=== PATIENT | female | born 1995 | race Caucasian/White ===

== ENCOUNTER 2016-12-12 10:28 | Emergency (ER) | payer BC, MEDICAID ==
[~2016-12-12] VITALS: Ht 152.4 cm; Wt 64.0 kg
[2016-12-12 10:31] VITALS: Ht 152.4 cm; Wt 64.0 kg
[2016-12-12] MEDS ORDERED: PRED20TA PO (11:00)
[2016-12-12] MEDS ORDERED: AMO500 PO (11:00)
[2016-12-12] MEDS ORDERED: TYL325R PR (11:00)
[2016-12-12] MEDS ORDERED: ACET325T33 PO (11:08)
--- NOTE | 2016-12-12 11:15 | ERA ---
ER Documentation Chief Complaint Date/Time DATE: 12/12/16 TIME: 11:09 Chief Complaint Complains of a sorethroat and earache HPI This is an otherwise healthy 21-year-old female presenting with a chief complaint of pharyngitis. Patient states that the symptoms started at 2 days ago and is worse when she swallows. Patient states that she has felt feverish but has not taken her temperature. Patient has not taken any medications to relieve the symptoms. The patient denies difficulty breathing, dysphagia, trauma to the throat, change in voice, drooling, fatigue, oral swelling, ear pain or meningismus. Patient was evaluated in the ED 1 week ago for the same symptoms along with a dry cough that has since subsided 3 days ago. Describes no other symptoms or associated manifestations. Denies personal or family medical history. Patients vaccination status is up to date. ROS All systems reviewed and are negative except as per history of present illness. Medications Home Meds Active Scripts Acetaminophen* (Tylenol*) 325 Mg Tablet, 1 TAB PO Q8 Y for PAIN AND OR ELEVATED TEMP, #20 TAB Prov:CINTHYA SANCHEZ PA-C 12/12/16 Amoxicillin* (Amoxicillin*) 500 Mg Cap, 500 MG PO BID for 10 Days, CAP Prov:CINTHYA SANCHEZ PA-C 12/12/16 Prednisone* (Prednisone*) 20 Mg Tab, 40 MG PO DAILY for 4 Days, TAB Prov:CINTHYA SANCHEZ PA-C 12/12/16 Discontinued Scripts Acetaminophen (Acephen) 325 Mg Supp.rect, 1 SUPP IN Q4 Y for PAIN AND OR ELEVATED TEMP, #8 SUPP Prov:CINTHYA SANCHEZ PA-C 12/12/16 Allergies Allergies: Coded Allergies: No Known Allergy (Unverified , 12/12/16) PMhx/Soc Medical and Surgical Hx: pt denies Medical Hx, pt denies Surgical Hx History of Surgery: No Anesthesia Reaction: No Hx Neurological Disorder: No Hx Respiratory Disorders: No Hx Cardiac Disorders: No Hx Psychiatric Problems: No Hx Miscellaneous Medical Probl: No Hx Alcohol Use: No Hx Substance Use: No Hx Tobacco Use: No Physical Exam Vitals Vital Signs Date Time Temp Pulse Resp B/P Pulse Ox O2 Delivery O2 Flow Rate FiO2 12/12/16 10:31 98.3 75 20 122/75 97 Physical Exam Const: Healthy-appearing, well-nourished, well-developed, no acute distress. Head: Normocephalic, Atraumatic Eyes: Non-injected; No scleral erythema, discharge or foreign body. EOMI bilaterally. PERRLA. Ears: Normal External Ears, EACs clear, TM normal bilaterally without erythema. Nose: Normal nose without discharge, septal deviation, or sinus tenderness. Throat: Erythematous oropharynx with enlarged tonsils bilaterally with exudates visualized. Patient has a small, about 0.2 mm black piece of debris on the right tonsil. Moist mucous membranes. Neck: [Anterior cervical lymphadenopathy bilaterally]. Full range of motion. Supple. Trachea midline. No posterior cervical lymphadenopathy. ~ No meningismus. Pulm: No dyspnea, stridor, tripoding or drooling. Good air movement. Clear to auscultation bilaterally. Cardio: Regular rate and rhythm; No murmurs, gallops or rubs auscultated. No JVD grossly observed. Capillary refill less than 2 seconds. Abd: Soft, non tender, non distended. No guarding, masses. Normal bowel sounds. No CVA tenderness. MS: Normal motor strength, normal tone. Skin: No petechiae or rashes. No ulcer, induration, jaundice. Good turgor. Back: No midline or flank tenderness Ext: No cyanosis, edema or palpable cord. Normal movement of all extremities grossly observed. Radial and posterior tibial pulses 2+ bilaterally. Neur: Awake and alert Psych: Active and alert. Normal Mood and Affect. Oriented x3. Procedures/MDM Patient was evaluated and worked up for pharyngitis as described in the history and physical examination. The patient has a [employer] Criteria of 3 out of 5. The current most likely diagnosis is viral versus bacterial tonsillitis. The treatment plan will thus include out-patient antibiotics and supportive measures. At this time I do not suspect diphtheria, Laverne-Lutz virus, peritonsillar abscess, epiglottitis, retropharyngeal abscess, parapharyngeal abscess, or allergic reaction. I no longer have suspicion for endangerment of the airway. I have spoke with the patient regarding their condition and future management. They have verbally responded that they understand their status and treatment plan. The patients vitals are stable, and their current condition is appropriate for discharge. The patient will be given discharge instructions with return precautions. Departure Diagnosis: Primary Impression: Acute bacterial tonsillitis Condition: Stable Patient Instructions: When Your Child Has Pharyngitis or Tonsillitis Additional Instructions: Follow up with your PCP within the next 1-3 days for a more thorough evaluation and a possible referral to a specialist. Return the the emergency department immediately if symptoms worsen or change. If you have any questions regarding medications, ask your pharmacist or us before you leave. If any adverse reactions occur while taking your medications, discontinue the treatment and return to the emergency department immediately. Take your medications as directed, and complete the entire course of treatment. CINTHYA SANCHEZ PA-C Dec 12, 2016 11:15
== END 2016-12-12 11:34 | disposition home or self-care (01) ==
LOC: FTE 10:28
DX: J03.90 Acute tonsillitis, unspecified (principal)
CPT/HCPCS: 99284

== ENCOUNTER 2017-06-11 21:38 | Emergency (ER) | payer BC, OTHER ==
[~2017-06-11] VITALS: Ht 162.6 cm; Wt 65.9 kg
[~2017-06-11 21:38] MED LIST: ACET325T33 PO; AMOX500C2 PO; PRED20TA PO
[2017-06-11 21:44] VITALS: Ht 162.6 cm; Wt 65.9 kg
--- NOTE | 2017-06-12 00:48 | ERD ---
ER Documentation Chief Complaint Chief Complaint vaginal pain/sore x 5 days HPI This 22-year-old female presents to emergency department with a left labia sore x 5 days, pt reports that it is painful. decreasing in size, pt is sexually active, condoms, denies STD history , + dysuria denies history of at HSV ROS All systems reviewed and are negative except as per history of present illness. Medications Home Meds Active Scripts Acetaminophen* (Tylenol*) 325 Mg Tablet, 1 TAB PO Q8 Y for PAIN AND OR ELEVATED TEMP, #20 TAB Prov:CINTHYA SANCHEZ PA-C 12/12/16 Amoxicillin* (Amoxicillin*) 500 Mg Cap, 500 MG PO BID for 10 Days, CAP Prov:CINTHYA SANCHEZ PA-C 12/12/16 Prednisone* (Prednisone*) 20 Mg Tab, 40 MG PO DAILY for 4 Days, TAB Prov:CINTHYA SANCHEZ PA-C 12/12/16 Allergies Allergies: Coded Allergies: No Known Allergy (Unverified , 06/12/17) PMhx/Soc Medical and Surgical Hx: pt denies Medical Hx, pt denies Surgical Hx History of Surgery: No Anesthesia Reaction: No Hx Neurological Disorder: No Hx Respiratory Disorders: No Hx Cardiac Disorders: No Hx Psychiatric Problems: No Hx Miscellaneous Medical Probl: No Hx Alcohol Use: No Hx Substance Use: No Hx Tobacco Use: No Smoking Status: Never smoker Physical Exam Vitals Vital Signs Date Time Temp Pulse Resp B/P Pulse Ox O2 Delivery O2 Flow Rate FiO2 06/11/17 21:44 97.5 75 20 117/72 97 Vitals stable, triage notes reviewed Physical Exam Const: Well-nourished, well-appearing, well-hydrated 22-year-old female in no acute distress Abd: Soft, non tender, non distended. Normal bowel sounds Pelvic Exam: [employer] Worker present Abdomen: Nontender External Genitalia: External genitalia healthy, left distal labia minora presents with a shallow ulcer, findings suggestive of a HSV infection Speculum: Deferred Bimanual: Deferred Neur: Awake and alert Psych: Normal Mood and Affect This 22-year-old female presents to emergency department for evaluation of a painful sore on her labia, denies history of HSV, emergency room course includes history and physical exam, exam findings support a HSV infection, with minimal breakout likely not the first breakout, patient does not report ever being diagnosed with HSV, denies that she has ever had vaginal ulcers. I spent 15 minutes with patient talking about support groups, treatment, and notifying partners prior to sexual encounters. Plan to discharge patient home with acyclovir 400 mg 3 times daily 7 days. Follow-up with [facility]. Patient is stable with no new complaints during ER course, clinically there is no current evidence to suggest urinary tract infection, Aide, or any other emergent condition appearing to require further evaluation or hospitalization. I feel the patient is stable for discharge at this time. I have discussed results, examination findings, the treatment plan with the patient and family present prior to discharge. Indications for emergent reevaluation, side effects of medication were also discussed. All questions were answered. Patient verbalizes understanding and agrees with plan of care. Results 24 hrs Laboratory Tests Test 06/12/17 01:11 Bedside Urine pH (LAB) 6.5 Bedside Urine Protein (LAB) Trace Bedside Urine Glucose (UA) Negative Bedside Urine Ketones (LAB) Negative Bedside Urine Blood Trace-intact Bedside Urine Nitrite (LAB) Negative Bedside Urine Leukocyte Esterase (L Negative Departure Diagnosis: Primary Impression: HSV (herpes simplex virus) infection Condition: Good Patient Instructions: Herpes Genitalis, Hsv: Type Ii Additional Instructions: Thank you for for coming to [facility] for your care today. Please ask your nurse or provider if you have questions about your care today and do not leave until all your questions have been answered. Please use any medications given as directed and follow-up with your doctor (or the doctor you were referred to) in the next 2-3 days. If you do not have a primary care doctor you may follow up at the [facility] (listed below). You may also use motrin and tylenol as needed for fever and/or pain unless instructed otherwise by your provider or nurse. Indications for more urgent follow-up have been discussed, but you may return to the Emergency Department at ANY time for any worrisome or worsening symptoms. If you have abdominal pain, please know that no test or exam you received is perfect and you should follow up within 8 hours for continued pain. If you had any imaging studies today, such as an X-Ray or CT Scan, these studies will be reviewed later by a radiologist. You will be called if there are important findings that were not identified today, so make sure the contact information you provided at registration is correct. If you received any narcotic pain control medicine today, such as Vicodin, Morphine or Dilaudid, your coordination and judgment may be affected for a number of hours. Please do not drive or operate heavy machinery, and you may want someone to assist you at home. If you were given a prescription for narcotic medication, be aware that it is very addictive- use sparingly and only if necessary. RA WEEBR Jun 12, 2017 00:48
[2017-06-12 01:11] LABS: URINE BLOOD (Dip) POC Trace-intact (NEGATIVE)
[2017-06-12] MEDS ORDERED: ACYC800T57 PO (02:24)
[2017-06-12] MEDS ORDERED: ACYC5CRE7 TOP (02:25)
[2017-06-12 02:47] VITALS: BP 125/70; PULSE 67; RESP 20; TEMP 97.8
== END 2017-06-12 02:46 | disposition home or self-care (01) ==
LOC: FTE 21:38
DX: B00.9 Herpesviral infection, unspecified (principal)
CPT/HCPCS: 81003; Z7502; 99284